=== PATIENT | female | born 2000 | race Two or more races ===

== ENCOUNTER 2022-05-09 07:22 | Emergency (ER) | payer OTHER ==
[2022-05-09 07:35] VITALS: BP 115/73; PULSE 69; RESP 18; TEMP 98.2; BMI 39.8
== END 2022-05-09 09:53 | disposition home or self-care (01) ==
LOC: JER 07:22
DX: U07.1 COVID-19 (principal); J02.8 Acute pharyngitis due to other specified organisms
CPT/HCPCS: 0241U-QW; 71046-TC-FY; 99284-25